=== PATIENT | male | born 1955 | race Two or more races ===

== ENCOUNTER 2017-12-31 09:57 | Emergency (ER) | payer MEDICAID ==
[~2017-12-31] VITALS: Ht 167.6 cm; Wt 85.0 kg
[2017-12-31 10:05] VITALS: BP 141/103
[2017-12-31] MEDS ORDERED: TETANUS AND DIPHTHERIA TOX/PF 0.5ML SYR (ADULT) IM ONE (10:45)
[2017-12-31] MEDS ORDERED: BACITRACIN ZINC OINT UDPKT TOP ONE (10:45)
[2017-12-31] MEDS ORDERED: TETANUS, DIPHTHERIA, PERTUSSIS VAC/PF 0.5ML (>7YR OLD) IM ONE (11:00)
== END 2017-12-31 11:15 | disposition home or self-care (01) ==
LOC: ER 10:42
DX: L02.511 Cutaneous abscess of right hand (principal); S61.031A Puncture wound without foreign body of right thumb without damage to nail, initial encounter; W45.0XXA Nail entering through skin, initial encounter; Z23 Encounter for immunization; F17.200 Nicotine dependence, unspecified, uncomplicated
CPT/HCPCS: 26010; 90471; 90715; 99283; X7700; Z7610; 90714

== ENCOUNTER 2018-02-19 15:05 | Emergency (ER) | payer MEDICAID ==
[~2018-02-19] VITALS: Ht 182.9 cm; Wt 87.0 kg
[2018-02-19 17:59] VITALS: BP 139/88
== END 2018-02-19 19:05 | disposition left against medical advice (07) ==
LOC: ER 15:05
DX: R21 Rash and other nonspecific skin eruption (principal)
CPT/HCPCS: 99281

== ENCOUNTER 2019-12-13 10:14 | Emergency (ER) | payer MEDICAID, MEDICARE ==
[~2019-12-13] VITALS: Ht 182.9 cm; Wt 86.0 kg
[2019-12-13] MEDS ORDERED: LIDOCAINE HCL 1% 20ML VIAL (Pyxis) INJ INFIL ONE (11:00)
[2019-12-13 11:16] VITALS: BP 142/97
== END 2019-12-13 11:19 | disposition home or self-care (01) ==
LOC: ER 10:14
DX: S51.812A Laceration without foreign body of left forearm, initial encounter (principal); W26.8XXA Contact with other sharp object(s), not elsewhere classified, initial encounter; Y93.89 Activity, other specified; Y92.89 Other specified places as the place of occurrence of the external cause; F12.90 Cannabis use, unspecified, uncomplicated
CPT/HCPCS: 12002; 99282

== ENCOUNTER 2019-12-15 10:53 | Emergency (ER) | payer MEDICARE ==
[~2019-12-15] VITALS: Ht 182.9 cm; Wt 84.8 kg
[2019-12-15 11:04] VITALS: BP 146/93
[2019-12-15] MEDS ORDERED: BACITRACIN ZINC OINT UDPKT TOP ONE (11:30)
== END 2019-12-15 11:37 | disposition home or self-care (01) ==
LOC: ER 10:53
DX: Z48.00 Encounter for change or removal of nonsurgical wound dressing (principal); I10 Essential (primary) hypertension; F12.90 Cannabis use, unspecified, uncomplicated
CPT/HCPCS: 99283

== ENCOUNTER 2019-12-18 09:46 | Emergency (ER) | payer MEDICARE, MEDICAID ==
[~2019-12-18] VITALS: Ht 182.9 cm; Wt 86.0 kg
[2019-12-18 10:16] VITALS: BP 137/84
[2019-12-18] MEDS ORDERED: MUPIROCIN 2% OINT 22GM NS SCH (11:00)
[2019-12-18] MEDS ORDERED: MUPIROCIN 2% OINT 22GM TOP SCH (11:15)
== END 2019-12-18 13:10 | disposition home or self-care (01) ==
LOC: ER 09:46
DX: T81.30XA Disruption of wound, unspecified, initial encounter (principal); L03.114 Cellulitis of left upper limb; Y84.8 Other medical procedures as the cause of abnormal reaction of the patient, or of later complication, without mention of misadventure at the time of the procedure; Y92.018 Other place in single-family (private) house as the place of occurrence of the external cause
CPT/HCPCS: 99283

== ENCOUNTER 2019-12-23 13:27 | Emergency (ER) | payer MEDICARE, MEDICAID ==
[~2019-12-23] VITALS: Ht 172.7 cm; Wt 84.0 kg
[2019-12-23 14:42] VITALS: BP 142/91
== END 2019-12-23 14:43 | disposition home or self-care (01) ==
LOC: ER 13:27
DX: S41.112D Laceration without foreign body of left upper arm, subsequent encounter (principal); X58.XXXD Exposure to other specified factors, subsequent encounter; F12.10 Cannabis abuse, uncomplicated; Z98.890 Other specified postprocedural states
CPT/HCPCS: 99282; 99283

== ENCOUNTER 2020-01-05 09:07 | Emergency (ER) | payer MEDICARE, MEDICAID ==
[~2020-01-05] VITALS: Ht 180.3 cm; Wt 89.0 kg
[2020-01-05 09:15] VITALS: BP 138/87
== END 2020-01-05 10:07 | disposition home or self-care (01) ==
LOC: ER 09:07
DX: Z48.02 Encounter for removal of sutures (principal)
CPT/HCPCS: 99281

== ENCOUNTER 2020-08-12 07:59 | Emergency (ER) | payer MEDICARE, MEDICAID ==
[~2020-08-12] VITALS: Ht 165.1 cm; Wt 84.0 kg
[2020-08-12 08:05] VITALS: BP 153/107
[2020-08-12] MEDS ORDERED: ACETAMINOPHEN 325MG TABLET PO ONE (09:15)
== END 2020-08-12 10:29 | disposition home or self-care (01) ==
LOC: ER 07:59
DX: M10.071 Idiopathic gout, right ankle and foot (principal); I10 Essential (primary) hypertension
CPT/HCPCS: 73610; 99283

== ENCOUNTER 2020-08-25 10:08 | Emergency (ER) | payer MEDICARE, MEDICAID ==
[~2020-08-25] VITALS: Ht 182.9 cm; Wt 87.0 kg
[2020-08-25] MEDS ORDERED: IBUPROFEN 600MG TABLET PO ONE (11:15)
[2020-08-25 12:01] VITALS: BP 151/103
== END 2020-08-25 12:02 | disposition home or self-care (01) ==
LOC: ER 10:08
DX: M10.9 Gout, unspecified (principal); G62.9 Polyneuropathy, unspecified; F12.10 Cannabis abuse, uncomplicated
CPT/HCPCS: 99282; 99283

== ENCOUNTER 2024-12-18 11:43 | Inpatient (IN) | payer MEDICARE, MEDICAID ==
[~2024-12-18] VITALS: Ht 175.3 cm; Wt 93.0 kg
[~2024-12-18 11:43] MED LIST: AMLO5TAB88 PO; APIX5TAB PO; AZIT500T8 MT; BRIM.2 EACHEYE; CITA20TA75 PO; DICL100G58 TP; DILT-26 PO; FLUT1BLS3 IH; FURO20TA4 PO; PROT20 PO; TRAZ-252 PO
[2024-12-18] MEDS ORDERED: ENALAPRIL 2.5MG/2ML VIAL 2ML IV ONE (12:00)
[2024-12-18 12:10] VITALS: RESP 22
[2024-12-18 12:13] LABS: BASOPHILS % 0.7 % (0.0-2.0); EOSINOPHILS % 1.8 % (0.0-5.0); HEMATOCRIT. 43.1 % (42.0-52.0); LYMPHOCYTES % 12.1 % (20.0-50.0); MEAN CORPUSCULAR HEMOGLOBIN 28.8 pg (28.0-32.0); MEAN CORPUSCULAR HGB CONC 32.5 g/dL (31.0-37.0); MEAN CORPUSCULAR VOLUME 88.4 fL (80.0-94.0); MEAN PLATELET VOLUME 8.4 fl (7.4-10.4); MONOCYTES % 8.1 % (2.0-8.0); NEUTROPHILS % 77.3 % (40.0-76.0); PLATELET 93 x1000/uL (130-400); RED BLOOD CELL COUNT 4.87 mill/uL (4.7-6.1); RED CELL DISTRIBUTION WIDTH 15.8 % (11.6-14.6); WHITE BLOOD COUNT 5.5 x1000/uL (4.5-11.0)
[2024-12-18 12:29] LABS: CHLORIDE 110 mEq/L (98-107); POTASSIUM 3.8 mEq/L (3.5-5.1); SODIUM 144 mEq/L (136-145)
[2024-12-18 12:30] LABS: CARBON DIOXIDE 26 mEq/L (21-32)
[2024-12-18 12:31] LABS: CALCIUM 9.9 mg/dL (8.7-10.4)
[2024-12-18] MEDS: FUROSEMIDE 40MG/4ML VIAL IVP ONE (12:33)
[2024-12-18 12:36] LABS: CREATININE 0.9 mg/dL (0.6-1.3); GLUCOSE 94 mg/dL (70-105); UREA NITROGEN BLOOD 12 mg/dL (9-23)
[2024-12-18 12:37] LABS: TROPONIN I HIGH SENSITIVITY 23 ng/L (3.0-53)
[2024-12-18] MEDS: ENALAPRIL 1.25MG/ML VIAL 1ML IV NR (13:39)
[2024-12-18] MEDS ORDERED: FURO-152 MT (14:26)
[2024-12-18] MEDS ORDERED: GABA-529 PO (14:27)
[2024-12-18] MEDS ORDERED: IPRATROPIUM/ALBUTEROL 0.5-3(2.5)MG/3ML NEB HHN PRN (14:30)
[2024-12-18] MEDS ORDERED: ACETAMINOPHEN 325MG TABLET PO PRN ×2 (14:30)
[2024-12-18] MEDS ORDERED: ONDANSETRON HCL 4MG/2ML INJ IV PRN (14:30)
[2024-12-18] MEDS ORDERED: DEXTROSE 50% WATER 50ML SYRINGE IV PRN (14:30)
[2024-12-18] MEDS ORDERED: HYDRALAZINE 20MG/ML VIAL IV PRN (14:30)
[2024-12-18] MEDS ORDERED: MAGNESIUM/ALUMINUM HYDROXIDE/SIMETHICONE 30ML UDC PO PRN (14:30)
[2024-12-18] MEDS: METHYLPREDNISOLONE SOD SUCC 125MG/2ML (ACT-O-VIAL) IV NR (15:30)
[2024-12-18 16:00] VITALS: BP 103/59; PULSE 100; RESP 18; TEMP 36.4; O2SAT 97
[2024-12-18 16:32] VITALS: BP 103/59; PULSE 100; RESP 18; TEMP 36.4
[2024-12-18 17:04] LABS: PHOSPHORUS 2.6 mg/dL (2.5-4.9)
[2024-12-18] MEDS: BLOOD SUGAR DIAGNOSTIC STRIP TEST SCH (17:10)
[2024-12-18 17:17] LABS: VITAMIN B12 SERUM 474 pg/mL (211-911)
[2024-12-18] MEDS: INSULIN LISPRO 100 UNITS/ML SUBCUT SCH (17:33)
[2024-12-18 18:52] LABS: INR 1.1; PARTIAL THROMBOPLASTIN TIME 27.5 sec (23.4-31.0); PROTHROMBIN TIME 11.3 sec (9.6-11.0)
[2024-12-18 20:00] VITALS: BP 116/62; PULSE 99; RESP 16; TEMP 36.6; O2SAT 98
[2024-12-18] MEDS ORDERED: BUDESONIDE 0.5MG/2ML NEB HHN SCH (21:00)
[2024-12-18] MEDS ORDERED: *PATIENT'S OWN MEDICATION STORAGE XX SCH (21:15)
[2024-12-18] MEDS: FAMOTIDINE 20MG/2ML VIAL IV SCH (21:32)
[2024-12-19] VITALS: BP 110/65; PULSE 116; RESP 18; TEMP 37.3; O2SAT 97
[2024-12-19 04:00] VITALS: BP 114/83; PULSE 108; RESP 19; TEMP 35.6; O2SAT 95
[2024-12-19 07:08] LABS: HEMATOCRIT. 43.8 % (42.0-52.0); HEMOGLOBIN. 14.2 g/dL (14.0-18.0); MEAN CORPUSCULAR HEMOGLOBIN 28.8 pg (28.0-32.0); MEAN CORPUSCULAR HGB CONC 32.4 g/dL (31.0-37.0); MEAN CORPUSCULAR VOLUME 88.8 fL (80.0-94.0); MEAN PLATELET VOLUME 8.3 fl (7.4-10.4); PLATELET 83 x1000/uL (130-400); RED BLOOD CELL COUNT 4.93 mill/uL (4.7-6.1); RED CELL DISTRIBUTION WIDTH 15.5 % (11.6-14.6); WHITE BLOOD COUNT 5.9 x1000/uL (4.5-11.0)
[2024-12-19 07:21] LABS: CARBON DIOXIDE 25 mEq/L (21-32); CHLORIDE 107 mEq/L (98-107); POTASSIUM 4.3 mEq/L (3.5-5.1); SODIUM 141 mEq/L (136-145)
[2024-12-19 07:22] LABS: CALCIUM 10.5 mg/dL (8.7-10.4)
[2024-12-19 07:27] LABS: CREATININE 0.9 mg/dL (0.6-1.3); GLUCOSE 151 mg/dL (70-105); TRIGLYCERIDE 53 mg/dL (0-150); UREA NITROGEN BLOOD 17 mg/dL (9-23)
[2024-12-19 07:28] LABS: LDL CHOLESTEROL 42 mg/dL (5-100)
[2024-12-19 07:29] LABS: CHOLESTEROL 78 mg/dL (<200); HDL CHOLESTEROL 25 mg/dL (>55)
[2024-12-19 07:30] LABS: THYROID STIMULATING HORMONE 0.72 uIU/mL (0.55-4.78)
[2024-12-19 07:51] LABS: DIFFERENTIAL COMMENT 1
[2024-12-19 08:00] VITALS: BP 112/85; PULSE 101; RESP 20; TEMP 36.4; O2SAT 96
[2024-12-19] MEDS: FUROSEMIDE 40MG/4ML VIAL IV SCH (08:33)
[2024-12-19 12:00] VITALS: BP 110/69; PULSE 100; RESP 18; TEMP 36.4; O2SAT 97
[2024-12-19] MEDS: NICOTINE 14MG PATCH TD SCH (12:34)
[2024-12-19 16:00] VITALS: BP 111/70; PULSE 98; RESP 20; TEMP 36.4; O2SAT 96
[2024-12-19 16:59] LABS: PLATELET ESTIMATE SLIGHTLY DECREASED
[2024-12-19] MEDS: ENOXAPARIN 100MG/ML SYR SUBCUT NR (18:19)
[2024-12-19] MEDS: DILTIAZEM HCL 60MG TABLET PO SCH (18:19)
[2024-12-19 19:14] LABS: CLARITY URINE CLEAR (CLEAR); COLOR URINE DARK YELLOW (YELLOW); GLUCOSE URINE NEGATIVE (NEGATIVE); KETONES URINE NEGATIVE (NEGATIVE); LEUKOCYTE ESTERASE URINE 1+ (NEGATIVE); NITRITE URINE NEGATIVE (NEGATIVE); OCCULT BLOOD URINE NEGATIVE (NEGATIVE); PH URINE 5.5 (4.5-8.0); PROTEIN URINE NEGATIVE (NEGATIVE); SPECIFIC GRAVITY URINE 1.023 (1.005-1.030)
[2024-12-19 19:34] LABS: *AMPHETAMINES SCREEN URINE NEGATIVE (NEGATIVE); *BARBITURATES SCREEN URINE NEGATIVE (NEGATIVE); *BENZODIAZEPINES SCREEN URINE NEGATIVE (NEGATIVE); *COCAINE SCREEN URINE NEGATIVE (NEGATIVE); CANNABINOID URINE SCREEN PRESUMPTIVE POSITIVE (NEGATIVE); ECSTASY MDMA SCREEN URINE NEGATIVE (NEGATIVE); METHADONE URINE SCREEN NEGATIVE (NEGATIVE); OPIATES URINE SCREEN NEGATIVE (NEGATIVE); PHENCYCLIDINE URINE SCREEN NEGATIVE (NEGATIVE)
[2024-12-19 19:41] LABS: BACTERIA URINE 1+; RBC URINE NONE SEEN /hpf (0-2); SQUAMOUS EPITHELIAL CELL URINE NONE SEEN /lpf (RARE/1+)
[2024-12-19 20:00] VITALS: BP 109/70; PULSE 100; RESP 18; TEMP 36.6; O2SAT 98
[2024-12-20] VITALS: BP 100/69; PULSE 98; RESP 18; TEMP 36.5; O2SAT 98
[2024-12-20] MEDS: TRAZODONE HCL 50MG TABLET PO PRN (00:42)
[2024-12-20 04:00] VITALS: BP 108/70; PULSE 99; RESP 17; TEMP 36.4; O2SAT 97
[2024-12-20 08:00] VITALS: BP 116/80; PULSE 84; RESP 15; TEMP 36.3; O2SAT 97
[2024-12-20] MEDS: EMPAGLIFLOZIN 10MG TABLET PO SCH (08:54)
[2024-12-20] MEDS: SPIRONOLACTONE 25MG TABLET PO SCH (08:54)
[2024-12-20] MEDS: FUROSEMIDE 40MG TABLET PO SCH (08:54)
[2024-12-20] MEDS: SACUBITRIL/VALSARTAN 24MG/26MG TABLET PO SCH (08:55)
[2024-12-20 09:57] LABS: BASOPHILS % 0.5 % (0.0-2.0); EOSINOPHILS % 0.7 % (0.0-5.0); HEMATOCRIT. 46.7 % (42.0-52.0); LYMPHOCYTES % 17.6 % (20.0-50.0); MEAN CORPUSCULAR HEMOGLOBIN 28.4 pg (28.0-32.0); MEAN CORPUSCULAR HGB CONC 32.2 g/dL (31.0-37.0); MEAN CORPUSCULAR VOLUME 88.3 fL (80.0-94.0); MEAN PLATELET VOLUME 8.9 fl (7.4-10.4); MONOCYTES % 7.4 % (2.0-8.0); NEUTROPHILS % 73.8 % (40.0-76.0); PLATELET 96 x1000/uL (130-400); RED BLOOD CELL COUNT 5.29 mill/uL (4.7-6.1); RED CELL DISTRIBUTION WIDTH 15.8 % (11.6-14.6); WHITE BLOOD COUNT 7.7 x1000/uL (4.5-11.0)
[2024-12-20 10:05] LABS: CARBON DIOXIDE 28 mEq/L (21-32); CHLORIDE 106 mEq/L (98-107); POTASSIUM 3.8 mEq/L (3.5-5.1); SODIUM 140 mEq/L (136-145)
[2024-12-20 10:06] LABS: CALCIUM 10.1 mg/dL (8.7-10.4)
[2024-12-20 10:11] LABS: CREATININE 1.2 mg/dL (0.6-1.3); GLUCOSE 84 mg/dL (70-105); UREA NITROGEN BLOOD 27 mg/dL (9-23)
[2024-12-20 10:12] LABS: TROPONIN I HIGH SENSITIVITY 28 ng/L (3.0-53)
[2024-12-20] MEDS: ENOXAPARIN 100MG/ML SYR SUBCUT SCH (11:54)
[2024-12-20 12:00] VITALS: BP 119/73; PULSE 94; RESP 16; TEMP 36.7; O2SAT 97
[2024-12-20] MEDS: DILTIAZEM HCL 60MG TABLET PO SCH (12:01)
[2024-12-20] MEDS ORDERED: TRAZ-251 PO (15:29)
[2024-12-20] MEDS ORDERED: EMPA10TA PO (15:29)
[2024-12-20] MEDS ORDERED: FURO40TA5 PO (15:29)
[2024-12-20] MEDS ORDERED: FAMO20TA8 PO (15:29)
[2024-12-20] MEDS ORDERED: SACU1TAB PO (15:29)
[2024-12-20] MEDS ORDERED: DILT60TA4 PO (15:29)
[2024-12-20] MEDS ORDERED: SPIR25TA PO (15:29)
[2024-12-20] MEDS ORDERED: NICO-681 TD (15:29)
[2024-12-20 15:46] VITALS: BP 116/61; PULSE 90; TEMP 99; O2SAT 96
[2024-12-20] MEDS ORDERED: FAMOTIDINE 20MG TABLET PO SCH (21:00)
== END 2024-12-20 16:00 | disposition home or self-care (01) | DRG 291 ==
LOC: ER 11:43 → 8WST 13:55 → EDBEDREQ 14:12 → EDBEDREQTM 14:12 → EDBEDREQSVC 14:12
PROVIDERS: ADMIT Hospitalist; ATTEND Hospitalist
PROC: 5A09357 Assistance with Respiratory Ventilation, Less than 24 Consecutive Hours, Continuous Positive Airway Pressure (ICD-10-PCS; principal; 2024-12-18)
DX: I11.0 Hypertensive heart disease with heart failure (principal); I50.23 Acute on chronic systolic (congestive) heart failure; J96.01 Acute respiratory failure with hypoxia; I48.92 Unspecified atrial flutter; I48.20 Chronic atrial fibrillation, unspecified; J43.9 Emphysema, unspecified; R91.1 Solitary pulmonary nodule; D63.8 Anemia in other chronic diseases classified elsewhere; F32.A Depression, unspecified; F41.9 Anxiety disorder, unspecified; I44.0 Atrioventricular block, first degree; D69.6 Thrombocytopenia, unspecified; I42.0 Dilated cardiomyopathy; F17.210 Nicotine dependence, cigarettes, uncomplicated; Z79.01 Long term (current) use of anticoagulants; Z87.442 Personal history of urinary calculi; Z87.11 Personal history of peptic ulcer disease; Z79.51 Long term (current) use of inhaled steroids; Z79.82 Long term (current) use of aspirin; Z79.899 Other long term (current) drug therapy; Z99.81 Dependence on supplemental oxygen
CPT/HCPCS: 36415; 71045; 80048; 80061; 80305; 81003; 82607; 82962; 83036; 83605; 83735; 83880; 84100; 84443; 84484; 85025; 87077; 87186; 93005; 93306; 94070; 94660; 94664; 97166; 98960; 99291; A4606; J1650; J1815; J1940; J2919; J3490

== ENCOUNTER → 2025-04-03 | Day surgery (SDC) | payer MEDICARE, MEDICAID ==
[~2025-04-03] VITALS: Ht 182.9 cm; Wt 88.5 kg
[~2025-04-03] MED LIST changes: +ACETAMINOPHEN 325MG TABLET PO PRN; -AMLO5TAB88 PO; -AZIT500T8 MT; -BRIM.2 EACHEYE; +CARV3.1242 PO; -CITA20TA75 PO; -DICL100G58 TP; -DILT-26 PO; +DILT60TA4 PO; +EMPA10TA PO; +FAMO20TA8 PO; +FENTANYL CITRATE/PF 50MCG/ML 2ML VIAL ONE; -FLUT1BLS3 IH; -FURO20TA4 PO; +FURO40TA5 PO; +HEPARIN 1000 UNITS/ML 10ML ONE; +IODIXANOL 320 MG/ML 150ML BOTTLE IV ONE; +LIDOCAINE HCL 1% 20ML VIAL ONE; +MIDAZOLAM HCL 2 MG/2 ML VIAL ONE; +NICO-681 TD; +ONDANSETRON HCL 4MG/2ML INJ IV PRN; -PROT20 PO; +SACU1TAB PO; +SPIR25TA PO; +TRAZ-251 PO
== END | disposition home or self-care (01) ==
LOC: CCL 06:48
PROVIDERS: ATTEND Specialist
DX: I25.5 Ischemic cardiomyopathy (principal); R94.39 Abnormal result of other cardiovascular function study; I25.10 Atherosclerotic heart disease of native coronary artery without angina pectoris; I48.91 Unspecified atrial fibrillation; F17.200 Nicotine dependence, unspecified, uncomplicated; Z79.01 Long term (current) use of anticoagulants; Z79.84 Long term (current) use of oral hypoglycemic drugs; Z79.899 Other long term (current) drug therapy; Z95.810 Presence of automatic (implantable) cardiac defibrillator; Z98.890 Other specified postprocedural states; Z82.49 Family history of ischemic heart disease and other diseases of the circulatory system
CPT/HCPCS: 93458; C1893; C1725; C1769 ×2; J3010; J1644 ×2; J2003; J2250; Q9967; C1887; A4606